=== PATIENT | female | born 1965 | race Two or more races ===

== ENCOUNTER 2025-03-31 11:34 | Inpatient (IN) | payer BC, OTHER ==
[~2025-03-31] VITALS: Ht 152.4 cm; Wt 47.5 kg
[2025-03-31] VITALS (30 sets, daily range): BP systolic 96–137; BP diastolic 35–69; PULSE 33–44; RESP 12–18; TEMP 97.8–98; O2SAT 96–98
--- NOTE | 2025-03-31 12:19 | ED.PDOC ---
History of Present Illness HPI Comments 59-year-old female with no PMHx presents with a chief complaint of dizziness x 1 month with associated bradycardia. Patient states that she went today to get a colonoscopy for the first time and was told that she was bradycardic. Patient was bradycardic upon arrival at 37 BPM. Patient reports that she has been dealing with dizziness for the past month. Chief Complaint: General Weakness Time Seen by MD: 12:13 Primary Care Provider: BHAVIN Alfredo Notes: Nurses Notes, Medications, Allergies Allergies: Coded Allergies: NO KNOWN ALLERGIES (Unverified , 03/31/25) Information Source: Patient Mode of Arrival: Ambulatory Severity: Moderate Timing: Hours Duration: Since onset Prehospital treatment: None Past Medical History PAST MEDICAL HISTORY: Denies Surgical History: COMMUNITY SERVICE DIRECTOR History: Denies all COMMUNITY SERVICE DIRECTOR Hx Family History Family History: Reviewed,noncontributory to illness Social History Smoker: Non-Smoker Alcohol: Denies ETOH Use Drugs: Denies Drug Use Lives In: Home Constitutional: denies: chills, diaphoresis, fatigue, fever, malaise, sweats, weakness, others EENTM: denies: blurred vision, double vision, ear bleeding, ear discharge, ear drainage, ear pain, ear ringing, eye pain, eye redness, hearing loss, mouth pain, mouth swelling, nasal discharge, nose bleeding, nose congestion, nose pain, photophobia, tearing, throat pain, throat swelling, voice changes, others Respiratory: denies: cough, hemoptysis, orthopnea, SOB at rest, shortness of breath, SOB with excertion, stridor, wheezing, others Cardiovascular: denies: chest pain, dizzy spells, diaphoresis, Dyspnea on exertion, edema, irregular heart beat, left arm pain, lightheadedness, palpitations, PND, syncope, others Gastrointestinal: denies: abdomen distended, abdominal pain, blood streaked bowels, constipated, diarrhea, dysphagia, difficulty swallowing, hematemesis, melena, nausea, poor appetite, poor fluid intake, rectal bleeding, rectal pain, vomiting, others Genitourinary: denies: abnormal vagina bleeding, burning, dyspareunia, dysuria, flank pain, frequency, hematuria, incontinence, pain, , vagina discharge, urgency, others Neurological: reports: dizziness; denies: fainting, headache, left sided numbness, left sided weakness, numbness, paresthesia, pre-existing deficit, right sided numbness, right sided weakness, seizure, speech problems, tingling, tremors, weakness, others Musculoskeletal: denies: back pain, gout, joint pain, joint swelling, muscle pain, muscle stiffness, neck pain, others Integumetry: denies: bruises, change in color, change in hair/nails, dryness, laceration, lesions, lumps, rash, wounds, others Allergic/Immunocompromised: denies: Difficulty Healing, Frequent Infections, Hives, Itching, others Hematologic/Lymphatic: denies: anemia, blood clots, easy bleeding, easy bruising, swollen glands, others Endocrine: denies: excessive hunger, excessive sweating, excessive thirst, excessive urination, flushing, intolerance to cold, intolerance to heat, unexplained weight gain, unexplained weight loss, others Psychiatric: denies: anxiety, bipolar disorder, depression, hopeless, panic disorder, schizophrenia, sleepless, suicidal, others All Other Systems: Reviewed and Negative Physical Exam General Appearance: Moderate Distress HEENT: Normal ENT Inspection, Pharynx Normal, TMs Normal Neck: Full Range of Motion, Non-Tender, Normal, Normal Inspection Respiratory: Chest Non-Tender, Lungs Clear, No Accessory Muscle Use, No Respiratory Distress, Normal Breath Sounds Cardiovascular: Bradycardia, No Edema, No JVD, No Murmur, No Gallop Breast Exam: Deferred Gastrointestinal: No Organomegaly, Non Tender, No Pulsatile Mass, Normal Bowel Sounds, Soft Genitalia: Deferred Pelvic: Deferred Rectal: Deferred Extremities: No calf tenderness, Normal capillary refill, Normal inspection, Normal range of motion, Non-tender, No pedal edema Musculoskeletal : Apperance: Normal Neurologic: Alert, 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 Was a procedure done?: No EKG EKG : Pulse Rate (adult): 37 Lena: Normal Cardiac Rhythm: ST Block: 2 Hypertrophy: None ST: Normal Differential Dx Considerations may include: Second-degree heart block, bradycardia, generalized weakness, electrolyte imbalance X-Ray, Labs, Meds, VS Vital Signs Date Time Temp Pulse Resp B/P (MAP) Pulse Ox O2 Delivery O2 Flow Rate FiO2 03/31/25 12:27 40 16 96 Room Air* 0 21 03/31/25 12:27 97.7 40 16 147/53 (84) 96 97.7 03/31/25 12:19 37 03/31/25 12:04 97.7 49 14 153/55 (87) 99 97.7 Lab Test 03/31/25 13:21 03/31/25 12:32 03/31/25 12:00 Range/Units Troponin I High Sensitivity Pending 4 </=34 ng/L White Blood Count 7.4 4.4-10.8 10^3/uL Red Blood Count 5.27 H 4.0-5.20 10^6/uL Hemoglobin 13.5 12.2-16.2 g/dL Hematocrit 40.7 36.0-46.0 % Mean Corpuscular Volume 77.3 L 80.0-100.0 fL Mean Corpuscular Hemoglobin 25.5 L 28.0-32.0 pg Mean Corpuscular Hemoglobin Concent 33.0 32.0-36.0 g/dL Red Cell Distribution Width 13.3 11.8-14.3 % Platelet Count 311 140-450 10^3/uL Mean Platelet Volume 8.1 6.9-10.8 fL Neutrophils (%) (Auto) 71.2 37.0-80.0 % Lymphocytes (%) (Auto) 23.9 10.0-50.0 % Monocytes (%) (Auto) 4.0 0.0-12.0 % Eosinophils (%) (Auto) 0.3 0.0-7.0 % Basophils (%) (Auto) 0.6 0.0-2.0 % Neutrophils # (Auto) 5.3 1.6-8.6 10 ^3/uL Lymphocytes # (Auto) 1.8 0.4-5.4 10 ^3/uL Monocytes # (Auto) 0.3 0-1.3 10 ^3/uL Eosinophils # (Auto) 0 0-0.8 10 ^3/uL Basophils # (Auto) 0 0-0.2 10 ^3/uL Nucleated Red Blood Cells 0.0 % Sodium Level 139 136-145 mmol/L Potassium Level 4.2 3.5-5.1 mmol/L Chloride Level 106 98-107 mmol/L Carbon Dioxide Level 25 20-31 mmol/L Anion Gap 8 5-15 Blood Urea Nitrogen 14 9-23 mg/dL Creatinine 0.78 0.550-1.02 mg/dL Glomerular Filtration Rate Calc 89 >90 mL/min BUN/Creatinine Ratio 17.9 10.0-20.0 Serum Glucose 120 H 74-106 mg/dL Hemoglobin A1c 5.9 H <5.7 % A1C Calcium Level 9.1 8.7-10.4 mg/dL Triglycerides Level Pending Cholesterol Level Pending LDL Cholesterol Pending HDL Cholesterol Pending Thyroid Stimulating Hormone (TSH) 1.18 0.55-4.78 uIU/mL Free Thyroxine (T4) Calculated Pending Urine Color Colorless Yellow Urine Clarity Clear Clear Urine pH 5.0 5.0-9.0 Urine Specific [place] 1.007 1.001-1.035 Urine Protein Negative Negative Urine Ketones Negative Negative Urine Blood Negative Negative /uL Urine Nitrite Negative Negative Urine Bilirubin Negative Negative Urine Urobilinogen Normal Negative mg/dL Urine Leukocyte Esterase Negative Negative /uL Urine RBC <1 0 - 4 /hpf Urine Microscopic WBC < 1 0-5 /HPF Urine Squamous Epithelial Cells Few <5 /hpf Urine Bacteria None seen None Seen /hpf Urine Glucose Normal Normal mg/dL Urine Opiates Screen Pending Urine Fentanyl Screen Pending Urine Barbiturates Screen Pending Urine Phencyclidine Screen Pending Urine Amphetamines Screen Pending Urine Benzodiazepines Screen Pending Urine Cocaine Screen Pending Urine Cannabinoids Screen Pending Current Medications Medications (Trade) Dose Ordered Sig/Jenn Route Start Time Stop Time Status Last Admin Sodium Chloride 500 ml @ 500 mls/hr Q1H ONCE IV 03/31/25 12:15 03/31/25 13:14 DC 03/31/25 12:25 The patient's family members at bedside The patient had an IV Hep-Lock established and the patient was bolused with 500 cc of normal saline The urine test is negative for any infection The CBC is within normal limits The chemistry panel is within normal limits The 1st troponin level is negative We did send the EKG to the double needle operator as it looks like the patient is having a second-degree block. At this time the patient was not started on any medication The patient is being admitted at this time. The patient understands and agrees with the management. Images Reviewed?: Images reviewed and evaluated by me Time of 1ST Reevaluation: 12:43 Reevaluation 1ST: Unchanged Patient Education/Counseling: Diagnosis, Treatment, Prognosis Family Education/Counseling: Diagnosis, Treatment, Prognosis Departure 1 Departure Time of Disposition: 14:07 Impression: Primary Impression: Second degree heart block Additional Impression: Dizziness Disposition: 09 ADMITTED INPATIENT Admit to: [facility] Condition: Guarded Critical Care Note Critical Care Time?: Yes (45 min-critical care time only) Stability Stability form required: Yes Unstable for transfer: ICU, CCU, PCU, [facility] (Intensive VS monitoring), ED Ph ysician Assesment (Clinical assesment) Heart Score Heart Score: Heart Score Response (Comments) Value History Slightly Suspicious 0 EKG Repolarization Disturb 1 Age 45-64 1 Risk Factors 1 or 2 risk factors 1 Troponin Normal limit 0 Total 3 I personally scribed for RABIA SALGADO MD ([email or web address]) on 03/31/25 at 12:19. Electronically submitted by [place] ([email or web address]). RABIA SALGADO MD Mar 31, 2025 12:19
[2025-03-31 12:23] LABS: Urine Bacteria None Seen /hpf (None Seen)
[2025-03-31] MEDS: SODIUM CHLORIDE 0.9% 500 ML IV ONE (12:25)
[2025-03-31 12:40] LABS: Urine Blood Negative /uL (Negative); Urine Clarity Clear (Clear); Urine Color Colorless (Yellow); Urine Protein, UAD Negative (Negative); Urine Specific Gravity 1.007 (1.001-1.035); Urine Squamous Epithelial Cell FEW /hpf (<5); Urine Urobilinogen Normal (Negative); Urine WBC < 1 /HPF (0-5)
[2025-03-31 12:43] LABS: Basophils # (auto) 0 10 ^3/uL (0-0.2); Basophils % (auto) 0.6 % (0.0-2.0); Eosinophils # (auto) 0 10 ^3/uL (0-0.8); Eosinophils % (auto) 0.3 % (0.0-7.0); Hematocrit 40.7 % (36.0-46.0); Hemoglobin 13.5 g/dL (12.2-16.2); Lymphocytes # (auto) 1.8 10 ^3/uL (0.4-5.4); Lymphocytes % (auto) 23.9 % (10.0-50.0); Mean Corpuscular Hemoglobin 25.5 pg (28.0-32.0); Mean Corpuscular Volume 77.3 fL (80.0-100.0); Monocytes # (auto) 0.3 10 ^3/uL (0-1.3); Neutrophils # (auto) 5.3 10 ^3/uL (1.6-8.6); Neutrophils % (auto) 71.2 % (37.0-80.0); Platelet Count (auto) 311 10^3/uL (140-450); Red Blood Cells 5.27 10^6/uL (4.0-5.20); Red Cell Distribution Width 13.3 % (11.8-14.3); White Blood Cell 7.4 10^3/uL (4.4-10.8)
--- NOTE | 2025-03-31 12:47 | DVH ---
INDICATION: weakness TECHNIQUE: Frontal view of the chest. COMPARISON: None FINDINGS: . The heart and mediastinal contours are grossly unremarkable. There is no evidence of pleural disea se. The lungs are clear. The bony structures of the chest are intact without fracture. IMPRESSION: 1. No evidence of acute disease.
[2025-03-31 12:51] LABS: Chloride 106 mmol/L (98-107); Potassium 4.2 mmol/L (3.5-5.1); Sodium 139 mmol/L (136-145)
[2025-03-31 12:52] LABS: Anion Gap 8 (5-15); Calcium 9.1 mg/dL (8.7-10.4); Carbon Dioxide 25 mmol/L (20-31)
[2025-03-31 12:57] LABS: BUN/Creatinine Ratio 17.9 (10.0-20.0); Blood Urea Nitrogen 14 mg/dL (9-23)
[2025-03-31 12:58] LABS: Glucose 120 mg/dL (74-106)
[2025-03-31] MEDS ORDERED: ONDANSETRON HCL 4 MG/2 ML VIAL IV PRN (13:15)
--- NOTE | 2025-03-31 13:32 | DVHHP2 ---
History of Present Illness Reason for Visit: SOB History of Present Illness Ibis Quiles is a 59-year-old female with past medical history of who presents to the ED with dizziness, generalized weakness, shortness of breath x1 month. Patient reports that she was supposed to get a colonoscopy today as a routine checkup when they noticed that her heart rate was low. Patient also reports traveling to [place] recently during and was develops fever which he has took Tylenol along with a cough with no productive phlegm. She states that she took some cinnamon to help with it. Her Juaquin is at the bedside. She states that she last saw primary doctor 6 months ago. Patient denies any chest pain, chills, recent trauma or injury, recent ingestion of spoiled food, abdominal pain, nausea, vomiting, or diarrhea. Review of Systems Constitutional: Yes: Weakness, Other (Dizziness) Respiratory: Shortness of breath Allergies: Coded Allergies: NO KNOWN ALLERGIES (Unverified , 03/31/25) Medications Current Medications Medications Dose Ordered Sig/Jenn Route Start Time Stop Time Status Last Admin Dose Admin Acetaminophen 650 mg Q6HP PRN PO 03/31/25 13:15 UNV Ondansetron HCl 4 mg Q4HP PRN IV 03/31/25 13:15 UNV Exam Vital Signs Vital Signs Date Time Temp Pulse Resp B/P (MAP) Pulse Ox O2 Delivery O2 Flow Rate FiO2 03/31/25 12:27 40 16 96 Room Air* 0 21 03/31/25 12:27 97.7 147/53 (84) 97.7 General Appearance: Alert, Oriented X3, Cooperative, No acute distress HEENT: Atraumatic, PERRLA, EOMI, Mucous membr. moist/pink Respiratory: Clear to auscultation, Normal air movement Cardiovascular: Normal S1, Normal S2 Abdominal: Normal bowel sounds, Soft, No tenderness, No hepatospenomegaly, No masses Extremities: No clubbing, No cyanosis, No edema Skin: No significant lesion Neuro: Normal speech, Normal tone, Sensation intact Psych/Mental Status: Mental status NL, Mood NL Labs/Xrays Labs Test 03/31/25 12:32 03/31/25 12:00 Range/Units White Blood Count 7.4 4.4-10.8 10^3/uL Red Blood Count 5.27 H 4.0-5.20 10^6/uL Hemoglobin 13.5 12.2-16.2 g/dL Hematocrit 40.7 36.0-46.0 % Mean Corpuscular Volume 77.3 L 80.0-100.0 fL Mean Corpuscular Hemoglobin 25.5 L 28.0-32.0 pg Mean Corpuscular Hemoglobin Concent 33.0 32.0-36.0 g/dL Red Cell Distribution Width 13.3 11.8-14.3 % Platelet Count 311 140-450 10^3/uL Mean Platelet Volume 8.1 6.9-10.8 fL Neutrophils (%) (Auto) 71.2 37.0-80.0 % Lymphocytes (%) (Auto) 23.9 10.0-50.0 % Monocytes (%) (Auto) 4.0 0.0-12.0 % Eosinophils (%) (Auto) 0.3 0.0-7.0 % Basophils (%) (Auto) 0.6 0.0-2.0 % Neutrophils # (Auto) 5.3 1.6-8.6 10 ^3/uL Lymphocytes # (Auto) 1.8 0.4-5.4 10 ^3/uL Monocytes # (Auto) 0.3 0-1.3 10 ^3/uL Eosinophils # (Auto) 0 0-0.8 10 ^3/uL Basophils # (Auto) 0 0-0.2 10 ^3/uL Nucleated Red Blood Cells 0.0 % Sodium Level 139 136-145 mmol/L Potassium Level 4.2 3.5-5.1 mmol/L Chloride Level 106 98-107 mmol/L Carbon Dioxide Level 25 20-31 mmol/L Anion Gap 8 5-15 Blood Urea Nitrogen 14 9-23 mg/dL Creatinine 0.78 0.550-1.02 mg/dL Glomerular Filtration Rate Calc 89 >90 mL/min BUN/Creatinine Ratio 17.9 10.0-20.0 Serum Glucose 120 H 74-106 mg/dL Calcium Level 9.1 8.7-10.4 mg/dL Troponin I High Sensitivity 4 </=34 ng/L Urine Color Colorless Yellow Urine Clarity Clear Clear Urine pH 5.0 5.0-9.0 Urine Specific [place] 1.007 1.001-1.035 Urine Protein Negative Negative Urine Ketones Negative Negative Urine Blood Negative Negative /uL Urine Nitrite Negative Negative Urine Bilirubin Negative Negative Urine Urobilinogen Normal Negative mg/dL Urine Leukocyte Esterase Negative Negative /uL Urine RBC <1 0 - 4 /hpf Urine Microscopic WBC < 1 0-5 /HPF Urine Squamous Epithelial Cells Few <5 /hpf Urine Bacteria None seen None Seen /hpf Urine Glucose Normal Normal mg/dL INDICATION: weakness TECHNIQUE: Frontal view of the chest. COMPARISON: None FINDINGS: . The heart and mediastinal contours are grossly unremarkable. There is no evidence of pleural disease. The lungs are clear. The bony structures of the chest are intact without fracture. IMPRESSION: 1. No evidence of acute disease. Assessment/Plan Assessment/Plan Assessment Sinus bradycardia with dizziness and generalized weakness History of Plan Admit to ICU NS at 500 cc given in ED EKG Troponins noted UA Chest x-ray noted Echo ordered Hemoglobin A1c UDS TSH lipid panel NPO for now Patient reports that she does not take any medications at home DVT prophylaxis-not indicated patient ambulates PUD prophylaxis not indicated no history of GERD or GI bleed Discussed plan of care with patient, patient's and nurse Cardiology consult for possible pacemaker Plan discussed with: Patient, Spouse My Orders Orders - ARLENE LAUGHLIN PRODUCTION COUNTER Procedure Category Date Status Time Admit ADMIT 03/31/25 Transmitted 13:07 Code Status CODE 03/31/25 Transmitted 13:07 Vital Signs KRYSTAL 03/31/25 In Process 13:07 Single Resource Boss KRYSTAL 03/31/25 In Process 13:07 Acetaminophen Tablet PHA 03/31/25 Logged (Tylenol Tablet) 13:15 Complete Blood Count LAB 04/01/25 Verified 04:00 Basic Metabolic Panel LAB 04/01/25 Verified 04:00 Magnesium LAB 04/01/25 Verified 04:00 Lipid Panel LAB 04/01/25 Verified 04:00 Echo 2d Mode Cardiac US 03/31/25 Logged DOP 13:07 Ondansetron Hcl PHA 03/31/25 Logged (Zofran) 13:15 Electrocardigram EKG 04/01/25 Logged 04:00 Troponin-I Hs LAB 03/31/25 Logged 13:07 Cardiac KRYSTAL 03/31/25 In Process Rehabilitation - Outpa Stat Ekg For Chest KRYSTAL 03/31/25 In Process Pain 13:07 Notify Of Changes KRYSTAL 03/31/25 In Process From Base 13:07 B2B Sales Manager For KRYSTAL 03/31/25 In Process 24 Hours 13:07 Emergency Dysrhythmia KRYSTAL 03/31/25 In Process Protocol 13:07 Rhythm Strips Once KRYSTAL 03/31/25 In Process Every Shift 13:07 Oxygen By Nasal RT 03/31/25 Transmitted Cannula 13:07 Drug Screen LAB 03/31/25 Transmitted 13:30 Lipid Panel LAB 03/31/25 Transmitted 13:30 Hemoglobin A1c LAB 03/31/25 Transmitted 13:30 Thyroid Stimulating LAB 03/31/25 Transmitted Hormone 13:30 Date of Service: Mar 31, 2025 Billing Provider: ARLENE LAUGHLIN Common Visit Codes: [id number] INP/OBS CARE (HIGH) ARLENE LAUGHLIN Mar 31, 2025 13:32
--- NOTE | 2025-03-31 14:42 | DVHINCON2 ---
Date Seen: Mar 31, 2025 Referring Physician DEVIN Charles Reason for Consultation Bradycardia History of Present Illness This is a 59-year-old female patient who presents to the emergency room with chief complaint of dizziness and fatigue for one month. The patient is primarily [place] speaking. Her at bedside is able to translate. Per her , they went to her colonoscopy appointment and during check in, she was found to be bradycardic. She was referred to the emergency room for further evaluation. Initial twelve lead electrocardiogram reveals sinus bradycardia with 2nd degree type 2 atrioventricular block. At the time of assessment, patient's heart rate fluctuating between 38-42 beats per minute, lace pinner reveals patient is still having episodic second-degree type 2 AV block. The patient denies any previous medical history. The patient denies taking any prescribed medications or [id number] medications. Past Medical History Past medical history reviewed. No other significant than mentioned above. Past Surgical History Family History Family history reviewed. Social History Denies the use of tobacco, alcohol or illicit drugs. Allergies: Coded Allergies: NO KNOWN ALLERGIES (Unverified , 03/31/25) Home Meds Denies taking any prescribed medications Current Medications Current Medications Medications (Trade) Dose Ordered Sig/Jenn Route PRN Reason Start Time Stop Time Status Last Admin Acetaminophen (Tylenol Tablet) 650 mg Q6HP PRN PO MILD PAIN (1-3 PAIN SCALE) 03/31/25 13:15 UNV Ondansetron HCl (Zofran) 4 mg Q4HP PRN IV NAUSEA / VOMITING 03/31/25 13:15 UNV Review of Systems Constitutional: No symptom reported Ears, Nose, & Throat: No symptom reported Eyes: No symptom reported Neurological: Dizziness Pulmonary/Respiratory: No symptoms reported Cardiovascular: No symptom reported Gastrointestinal: No symptom reported Genitourinary: No symptom reported Musculoskeletal: No symptom reported Skin: No symptom reported Psychiatric: No symptom reported Endocrine: No symptom reported Hematologic/Lymphatic: No symptom reported Vital Signs Vital Signs Date Time Temp Pulse Resp B/P (MAP) Pulse Ox O2 Delivery O2 Flow Rate FiO2 03/31/25 12:27 40 16 96 Room Air* 0 21 03/31/25 12:27 97.7 147/53 (84) 97.7 Physical Exam General Appearance: Cooperative. Well-developed. Well-nourished. No acute distre ss. Pulmonary/Respiratory: Clear, bilateral breaths sounds. Cardiovascular/Chest: Regular rate and rhythm. Peripheral Pulses: 2+ Radial (R). 2+ Radial (L). 2+ Pedal (R). 2+ Pedal (L) Abdominal Exam: Normal bowel sounds. Ankle Exam: Negative ankle edema Lower extremities: Negative lower extremity edema Neuro/Mental Status: A/OX4, coherent. Thoughts/Psych: Normal thought pattern. Appropriate mood and affect. Good judgment and insight. Appearance: No acute distress. Skin Exam: Normal inspection. Normal color. Warm and dry. Labs/Diagnostic Data Labs Test 03/31/25 12:32 03/31/25 12:00 Range/Units White Blood Count 7.4 4.4-10.8 10^3/uL Red Blood Count 5.27 H 4.0-5.20 10^6/uL Hemoglobin 13.5 12.2-16.2 g/dL Hematocrit 40.7 36.0-46.0 % Mean Corpuscular Volume 77.3 L 80.0-100.0 fL Mean Corpuscular Hemoglobin 25.5 L 28.0-32.0 pg Mean Corpuscular Hemoglobin Concent 33.0 32.0-36.0 g/dL Red Cell Distribution Width 13.3 11.8-14.3 % Platelet Count 311 140-450 10^3/uL Mean Platelet Volume 8.1 6.9-10.8 fL Neutrophils (%) (Auto) 71.2 37.0-80.0 % Lymphocytes (%) (Auto) 23.9 10.0-50.0 % Monocytes (%) (Auto) 4.0 0.0-12.0 % Eosinophils (%) (Auto) 0.3 0.0-7.0 % Basophils (%) (Auto) 0.6 0.0-2.0 % Neutrophils # (Auto) 5.3 1.6-8.6 10 ^3/uL Lymphocytes # (Auto) 1.8 0.4-5.4 10 ^3/uL Monocytes # (Auto) 0.3 0-1.3 10 ^3/uL Eosinophils # (Auto) 0 0-0.8 10 ^3/uL Basophils # (Auto) 0 0-0.2 10 ^3/uL Nucleated Red Blood Cells 0.0 % Sodium Level 139 136-145 mmol/L Potassium Level 4.2 3.5-5.1 mmol/L Chloride Level 106 98-107 mmol/L Carbon Dioxide Level 25 20-31 mmol/L Anion Gap 8 5-15 Blood Urea Nitrogen 14 9-23 mg/dL Creatinine 0.78 0.550-1.02 mg/dL Glomerular Filtration Rate Calc 89 >90 mL/min BUN/Creatinine Ratio 17.9 10.0-20.0 Serum Glucose 120 H 74-106 mg/dL Calcium Level 9.1 8.7-10.4 mg/dL Troponin I High Sensitivity 4 </=34 ng/L Urine Color Colorless Yellow Urine Clarity Clear Clear Urine pH 5.0 5.0-9.0 Urine Specific [place] 1.007 1.001-1.035 Urine Protein Negative Negative Urine Ketones Negative Negative Urine Blood Negative Negative /uL Urine Nitrite Negative Negative Urine Bilirubin Negative Negative Urine Urobilinogen Normal Negative mg/dL Urine Leukocyte Esterase Negative Negative /uL Urine RBC <1 0 - 4 /hpf Urine Microscopic WBC < 1 0-5 /HPF Urine Squamous Epithelial Cells Few <5 /hpf Urine Bacteria None seen None Seen /hpf Urine Glucose Normal Normal mg/dL Assessment Sinus bradycardia with second-degree type II atrioventricular block Rule out structural heart disease Dyslipidemia, newly diagnosed History of Plan/Recommendation We will continue with following plan/recommendations (Dr. Mckee): Case discussed with . We will proceed with obtaining a transthoracic echocardiogram to evaluate cardiac function. At the time of assessment, the patient is asymptomatic and denies any cardiac symptoms. Blood pressures stable at time of assessment. Given that the patient has no reversible causes and presents with intermittent 2nd degree type II atrioventricular block, the patient will need a permanent pacemaker. Procedure discussed with the patient and her at bedside in full detail. Plan for permanent pacemaker insertion on 04/01/2025 at soonest availability. Recommend to initiate transcutaneous pacing with symptomatic bradycardia and call procurement professional immediately. Initiate Isuprel (isoproterenol) for heart rate less than 30 beats per minute. Keep patient ICU status overnight. Avoid any AV tyrel blocking agents. Thank you for allowing us to care for this patient. Please call with any questions or concerns. Critical care time spent: 44 minutes This medical document was created using an electronic medical record system with voice recognition software and computerized dictation system. Although this document has been carefully reviewed, there might still be some phonetic and typographical errors. Occasional wrong-word or ``sound-alike substitutions may have occurred due to the inherent limitations of voice recognition software. These areas are purely typographical due to imperfections of the software programs and do not reflect any compromise in the patient's medical care. Please read the chart carefully and recognize, using context, where these substitutions have occurred. Plan discussed with: Patient NYHA Physical activity limitations: NA Date of Service: Mar 31, 2025 Billing Provider: MACKENZIE COLLIER Cardiology Common Codes: [id number] INP/OBS CARE (High) Cardiology Consultation Codes: [id number] CONSULT <45MIN MCAKENZIE COLLIER Mar 31, 2025 14:42
[2025-03-31 14:54] LABS: Amphetamine Screen, Urine Neg (NEGATIVE); Barbiturate Scree,Urine Neg (NEGATIVE); Benzodiazephine Screen, Urine Neg (NEGATIVE); Cannabinoid Screen, Urine Neg (NEGATIVE); Cocaine Screen, Urine Neg (NEGATIVE); Opiate Scree,Urine Neg (NEGATIVE); Phencyclidine Screen, Urine Neg (NEGATIVE)
[2025-03-31 15:41] LABS: Triglycerides 83 mg/dL (< 150)
[2025-03-31 15:43] LABS: HDL Cholesterol 50 mg/dL (40-59)
[2025-03-31 15:45] LABS: Cholesterol 222 mg/dL (< 200); LDL Cholesterol 169 mg/dL (< 100)
[2025-03-31] MEDS: ATORVASTATIN 20 MG TAB PO SCH (19:43)
[2025-03-31] MEDS ORDERED: ISOPROTERENOL HCL INJECTION 1 MG in D5W 5% 250 ML IV SCH (20:00)
[2025-04-01] VITALS (49 sets, daily range): BP systolic 83–131; BP diastolic 37–84; PULSE 32–83; RESP 12–20; TEMP 97–99.5; O2SAT 96–100
[2025-04-01] MEDS: DOPamine 1600MCG/ML D5W 250 ML IV PRN (03:24)
[2025-04-01 04:17] LABS: Basophils # (auto) 0 10 ^3/uL (0-0.2); Basophils % (auto) 0.7 % (0.0-2.0); Eosinophils # (auto) 0.1 10 ^3/uL (0-0.8); Eosinophils % (auto) 0.8 % (0.0-7.0); Hematocrit 42.3 % (36.0-46.0); Hemoglobin 14.1 g/dL (12.2-16.2); Lymphocytes # (auto) 1.9 10 ^3/uL (0.4-5.4); Lymphocytes % (auto) 28.7 % (10.0-50.0); Mean Corpuscular Hemoglobin 25.8 pg (28.0-32.0); Mean Corpuscular Hgb Conc. 33.4 g/dL (32.0-36.0); Mean Corpuscular Volume 77.3 fL (80.0-100.0); Monocytes # (auto) 0.3 10 ^3/uL (0-1.3); Monocytes % (auto) 5.2 % (0.0-12.0); Neutrophils # (auto) 4.2 10 ^3/uL (1.6-8.6); Neutrophils % (auto) 64.6 % (37.0-80.0); Nucleated Red Blood Cells % 0.1 %; Platelet Count (auto) 295 10^3/uL (140-450); Red Blood Cells 5.47 10^6/uL (4.0-5.20); Red Cell Distribution Width 13.3 % (11.8-14.3); White Blood Cell 6.5 10^3/uL (4.4-10.8)
[2025-04-01 04:23] LABS: Anion Gap 12 (5-15); Carbon Dioxide 22 mmol/L (20-31); Chloride 108 mmol/L (98-107); Potassium 3.7 mmol/L (3.5-5.1); Sodium 142 mmol/L (136-145)
[2025-04-01 04:24] LABS: Calcium 9.2 mg/dL (8.7-10.4)
[2025-04-01 04:27] LABS: INR 1.06 (0.9-1.15); Partial Thromboplastin Time 31.8 SEC (24.5-34.5); Prothrombin Time 11.2 sec (9.3-11.8)
[2025-04-01 04:29] LABS: Blood Urea Nitrogen 13 mg/dL (9-23); Glucose 98 mg/dL (74-106)
[2025-04-01 04:44] LABS: Triglycerides 90 mg/dL (< 150)
[2025-04-01 04:46] LABS: HDL Cholesterol 51 mg/dL (40-59)
[2025-04-01 04:48] LABS: Cholesterol 230 mg/dL (< 200); LDL Cholesterol 174 mg/dL (< 100)
[2025-04-01] MEDS: VANCOMYCIN 1GM/200ML PM 200 ML IV ONE (12:36)
[2025-04-01] MEDS: VANCOMYCIN HCL 1000 MG VL ONE (12:36)
[2025-04-01] MEDS: fentaNYL CITRATE 100 MCG/2 ML VL ONE (12:36)
[2025-04-01] MEDS: LIDOCAINE 2%HCL (LOCAL ANESTH.) INJ 20ML MDV ONE (12:36)
[2025-04-01] MEDS: MIDAZOLAM HCL 2MG/2ML 2ml VIAL (1mg/ml) ONE (12:36)
[2025-04-01] MEDS: IODIXANOL 320MG/ML 100ML BTL IV ONE (12:52)
--- NOTE | 2025-04-01 14:25 | DVHOP2 ---
Operative Report - 2 Report Details Date: 04/01/25 Preop Diagnosis: Second-degree AV block type 2 Postop Diagnosis: Second-degree AV block type 2 Surgeon: Brittny Mckee MD Anesthesiologist: Conscious sedation Anesthesia: Mac, Local Implant: Dual-chamber permanent pacemaker Consent: The patient was informed of the risks and benefits of the procedure. These include but are not limited to complications of anesthesia, postoperative infection, incomplete relief of symptoms, recurrence of symptoms, damage to blood vessels, nerves and tendons, deep venous thrombosis, pulmonary embolism and possible need for repeat surgery in the future. Complications: No complications Estimated Blood Loss: 5 cc Findings: Second-degree AV block type 2 Indications for Surgery: Symptomatic bradycardia. Second-degree AV block type 2 Name of Procedure Performed Permanent pacemaker implantation. Procedure Details Procedure Details: Prior local anesthesia with 2% lidocaine to the left pectoral area and full informed consent obtained the patient was prepped and draped in usual fashion followed by an incision made over the left pectoral area after venogram was performed and under fluoroscopic guidance we placed a cook needle into the subclavian vein and placed AJ curved guidewire. Peel-away sheaths were used to place active fixation electrodes into the right ventricle and right atrium after adequate capture and sensitivity thresholds were obtained Patient tolerated the procedure well there were no complications The atrial lead placed is a solia S 45 serial number [id number] by [employer]. P wave was 2.9 volts at 0.9 volts and 0.4 milliseconds, 880 Ohms of impedance. The ventricular lead is a solia S 53 serial number [id number] by [employer], R- wave was 8.7 at 0.6 volts 0.4 milliseconds and 665 Ohms of impedance The implanted device is a Amvia Edge DRT serial no. [id number] by [employer] The settings are as follows: DDD at a lower rate of 60 and an upper rate of 130. Right atrial pulse amplitude at 4 volts at 0.4 milliseconds at 0.5 mV of sensitivity bipolar configuration in both pacing and sensing. The right ventricular lead is set at 4 volts at 0.4 milliseconds of pulse width. A sensitivity of 2 mV and bipolar configuration in both sensing and pacing. A chest x-ray was obtained to evaluate lead placement. 0 Ethibond was used to tie the leads. 3-0 Vicryl was used to close the pocket and 4-0 Monocryl was used to close the skin. Patient tolerated the procedure well there were no complications Impression: Successful permanent pacemaker implantation for second-degree AV block and symptomatic bradycardia Recommendations: Continue with risk factor modification. Chest x-ray and EKG ordered. Condition Good Disposition Still a Patient Date of Service: Apr 01, 2025 Billing Provider: BRITTNY MCKEE Sr., MD Cardiology Common Codes: PROCEDURE ONLY Card. Pacer Implants/Gen [id number]/REPLACE DUAL LEAD PACER BRITTNY MCKEE Sr., MD Apr 01, 2025 14:25
--- NOTE | 2025-04-01 14:51 | DVH ---
CHEST RADIOGRAPH Indication: S/P PACEMAKER Technique: Single frontal view of the chest was obtained COMPARISON: XY CHEST PORTABLE on DOS: 03/31/25 FINDINGS: Lines and Tubes: Left chest wall pacemaker Lungs: Clear Pleura: No effusion. No pneumothorax. Cardiomediastinal contours: Unremarkable Bones: Unremarkable IMPRESSION: No acute disease.
[2025-04-01] MEDS: ACETAMINOPHEN 325 MG TAB PO PRN (18:13)
--- NOTE | 2025-04-01 19:59 | DVHPN2 ---
Subjective Still having symptoms Reviewed: H&P, Labs Changes from previous H/P or p: No Changes Respiratory: Shortness of breath Objective Vitals Vital Signs Date Time Temp Pulse Resp B/P (MAP) Pulse Ox O2 Delivery O2 Flow Rate FiO2 04/01/25 16:30 97.1 70 18 125/71 (89) 98 97.1 04/01/25 12:00 Room Air* 0 21 Intake/Output Intake and Output 04/01/25 07:00 Intake Total 536.6 ml Balance 536.6 ml IV Total 536.6 ml # Voids 2 General Appearance: Alert, Oriented X3 HEENT: Atraumatic Lungs: Clear to auscultation Cardiovascular: Regular rate Abdomen: Normal bowel sounds, Soft Medications Current Medications Medications Dose Ordered Sig/Jenn Route Start Time Stop Time Status Last Admin Dose Admin Acetaminophen 650 mg Q6HP PRN PO 03/31/25 13:15 04/01/25 18:13 650 MG Ondansetron HCl 4 mg Q4HP PRN IV 03/31/25 13:15 Atorvastatin Calcium 40 mg HS PO 03/31/25 22:00 Laboratory Results Laboratory Tests 04/01/25 03:55 Chemistry Test 04/01/25 03:55 Calcium Level 9.2 mg/dL (8.7-10.4) Magnesium Level 2.0 mg/dL (1.6-2.6) Coagulation Test 04/01/25 03:55 Prothrombin Time 11.2 sec (9.3-11.8) Prothrombin Time INR 1.06 (0.9-1.15) Activated Partial Thromboplast Time 31.8 SEC (24.5-34.5) Lipid panel Test 04/01/25 03:55 Cholesterol Level 230 mg/dL (< 200) H HDL Cholesterol 51 mg/dL (40-59) Triglycerides Level 90 mg/dL (< 150) Urinalysis Test 03/31/25 12:00 Urine Color Colorless (Yellow) Urine Clarity Clear (Clear) Urine pH 5.0 (5.0-9.0) Urine Specific [place] 1.007 (1.001-1.035) Urine Protein Negative (Negative) Urine Ketones Negative (Negative) Urine Blood Negative /uL (Negative) Urine Nitrite Negative (Negative) Urine Bilirubin Negative (Negative) Urine Urobilinogen Normal mg/dL (Negative) Urine Leukocyte Esterase Negative /uL (Negative) Urine RBC <1 /hpf (0 - 4) Urine Microscopic WBC < 1 /HPF (0-5) Urine Squamous Epithelial Cells Few /hpf (<5) Urine Bacteria None seen /hpf (None Seen) Urine Glucose Normal mg/dL (Normal) Assessment/Plan Assessment/Plan Sinus bradycardia with dizziness and generalized weakness History of Per cardiology will need pacemaker Plan discussed with: Patient Date of Service: Apr 01, 2025 Billing Provider: TIM BRIDGES MD Common Visit Codes: [id number] INP/OBS CARE(HIGH) TIM BRIDGES MD Apr 01, 2025 19:59
[2025-04-02] VITALS (7 sets, daily range): BP systolic 100–115; BP diastolic 53–64; PULSE 64–85; RESP 16–20; TEMP 97.5–98.3; O2SAT 97–100
--- NOTE | 2025-04-02 10:31 | DVH ---
CHEST RADIOGRAPH Indication: CXR FOR PACEMAKER/ICD LEAD PLACEMENT Technique: Single frontal view of the chest was obtained COMPARISON: XY CHEST PORTABLE on DOS: 04/01/25, XY CHEST PORTABLE on DOS: 03/31/25 FINDINGS: Lines and Tubes: Left chest wall pacemaker Lungs: Clear Pleura: No effusion. No pneumothorax. Cardiomediastinal contours: Unremarkable Bones: Unremarkable IMPRESSION: No acute disease.
--- NOTE | 2025-04-02 12:43 | DVHPN2 ---
Consult Progress Note Subjective Review of Systems: MSK:Abnormal (Left incision soreness) Objective vital signs Vital Sign Date Time Temp Pulse Resp B/P (MAP) Pulse Ox O2 Delivery O2 Flow Rate FiO2 04/02/25 11:49 97.5 85 16 115/59 (77) 99 97.5 04/02/25 08:00 Room Air* 0 21 Total Intake and Output 04/01/25 04/01/25 04/02/25 15:00 23:00 07:00 Intake Total 0 ml 240 ml Balance 0 ml 240 ml medications Current Medications Medications Dose Ordered Sig/Jenn Route Start Time Stop Time Status Last Admin Dose Admin Acetaminophen 650 mg Q6HP PRN PO 03/31/25 13:15 04/01/25 18:13 650 MG Ondansetron HCl 4 mg Q4HP PRN IV 03/31/25 13:15 Atorvastatin Calcium 40 mg HS PO 03/31/25 22:00 04/01/25 21:07 40 MG Examination: CVS:Normal (Telemetry consistent with sinus with V paced rhythm at 72 beats per minute.) laboratory and microbiology Laboratory Tests 04/01/25 03:55 Test 04/01/25 03:55 Range/Units Serum Glucose 98 74-106 mg/dL Problem List/Assessment/Plan Problem List/Assessment/Plan Assessment Sinus bradycardia with second-degree type II atrioventricular block Rule out structural heart disease Dyslipidemia, newly diagnosed History of S/p dual-chamber ppm implantation Plan/Recommendation We will continue with following plan/recommendations (Dr. Mckee): Case discussed with . At the time of assessment, the patient is asymptomatic and denies any cardiac symptoms. Blood pressures stable at time of assessment. Given that the patient has no reversible causes and presents with intermittent 2nd degree type II atrioventricular block, underwent placement of permanent pacemaker. Interrogation this morning showing normal function device. Normal CXR. Patient is stable from Cardiology standpoint in setting of unremarkable echo. Follow up instructions have been given to patient at bedside. Plan of care discussed all questions answered. This medical document was created using an electronic medical record system with voice recognition software and computerized dictation system. Although this document has been carefully reviewed, there might still be some phonetic and typographical errors. Occasional wrong-word or ``sound-alike substitutions may have occurred due to the inherent limitations of voice recognition software. These areas are purely typographical due to imperfections of the software programs and do not reflect any compromise in the patient's medical care. Please read the chart carefully and recognize, using context, where these substitutions have occurred. Thank you for allowing me to participate in the management of this patient. The treatment plan was discussed with and agreed upon by patient/family including requesting consultants and ordering of imaging/procedures. Plan discussed with: Patient Date of Service: Apr 02, 2025 Billing Provider: REGAN MCLEAN Common Visit Codes: [id number] INP/OBS CARE(HIGH) REGAN MCLEAN Apr 02, 2025 12:43
[2025-04-02] MEDS ORDERED: ATOR20TA50 PO (15:02)
--- NOTE | 2025-04-02 15:25 | DVHSR ---
APPROVED REPORT EXAM: Two-dimensional and M-mode echocardiogram with Doppler and color Doppler. Blood Pressure: 147/53 mmHg INDICATION EVALUATE CARDIAC FUNCTION RISK FACTORS Height: 5'0, Weight: 215 DIMENSIONS LVDd3.1 (3.8-5.7cm)LA (2D)4.2 (1.9-4.0cm)Aortic Root2.9 (2.0-3.7cm) LVDs2.0 (2.5-4.0cm)LA (MM) (1.9-4.0cm)Aortic Cusp Exc1.7 (1.5-2.0cm) EF (%) 65.0 (55-70%)Rt. Atrium3.1 (1.9-4.0cm)Asc. Aorta cm IVSd0.7 (0.7-1.1cm)RV (D)3.8 (1.8-2.4cm) PWd1.0 (0.7-1.1cm) Mitral Valve MitralMitral Stenosis E wave1.08m/sMV Mean GR.mmHg A wave0.87m/sMV Peak GR.83mmHg E/A ratio1.22D MVAcm2 DECEL [id number] 1/2 [place] Aortic Valve Aortic ValveAortic Stenosis V11.65m/Temitope Mean GR.6mmHg V21.62m/Temitope Peak GR.10mmHg LVOT Diameter2.0 (1.8-2.4cm)Doppler AVA3.20cm2 Pulmonic Valve V21.15m/s Tricuspid Valve TR Velocity2.27m/s [id number] Conclusion Sinus rhythm. Left atrial enlargement. Aortic root enlargement. Mild aortic sclerosis. Valves appear to be structurally normal. EF of 55% with normal RV function. Dopplers unremarkable. No pericardial effusion masses or vegetations.
--- NOTE | 2025-04-03 09:36 | ECG ---
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
--- NOTE | 2025-04-03 09:47 | ECG ---
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
--- NOTE | 2025-04-04 13:06 | ECG ---
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
--- NOTE | 2025-04-05 07:27 | ECG ---
[facility] Test Date: 2025-04-01 Test Time: 14:25:24 Pat Name: WILIAN CANTOR Department: Room: [address] [place] [address] 1 Gender: F Transmission Inspector: VALENTIN : 1965 Requested By: BRITTNY VIEIRA Order Number: [id number] Reading MD: Measurements Intervals [place] Rate: 84 P: 19 MT: 150 QRS: -76 QRSD: 146 T: 87 QT: 454 QTc: 536 Interpretive Statements Poor data quality, interpretation may be adversely affected Electronic ventricular pacemaker Please click the below link to view image of tracing.
== END 2025-04-02 16:23 | disposition home or self-care (01) | DRG 244 ==
LOC: ER 11:46 → OVERFLOW 13:42 → TELE-EAST 04-01 15:49
PROVIDERS: ADMIT Hospitalist; ATTEND Hospitalist
PROC: 0JH606Z Insertion of Pacemaker, Dual Chamber into Chest Subcutaneous Tissue and Fascia, Open Approach (ICD-10-PCS; principal; 2025-04-01)
PROC: 02H63JZ Insertion of Pacemaker Lead into Right Atrium, Percutaneous Approach (ICD-10-PCS; 2025-04-01)
PROC: 02HK3JZ Insertion of Pacemaker Lead into Right Ventricle, Percutaneous Approach (ICD-10-PCS; 2025-04-01)
DX: I44.1 Atrioventricular block, second degree (principal); E78.5 Hyperlipidemia, unspecified
CPT/HCPCS: 33208; 36415; 71045; 80048; 80061; 80307; 81001; 83036; 83735; 84439; 84443; 84484; 85025; 85610; 85730; 86850; 86900; 86901; 87081; 93005; 93306; 99152; 99291; G0378; J2250; J7060; Q9967

== ENCOUNTER 2025-05-09 07:18 | Outpatient (CLI) | payer BC ==
[~2025-05-09] VITALS: Ht 152.4 cm; Wt 47.2 kg
[~2025-05-09 07:18] MED LIST: ATOR20TA50 PO
[2025-05-09] MEDS: REGADENOSON 0.4 MG/5 ML SYRG IV ONE ×2 (08:54→11:49)
--- NOTE | 2025-05-09 13:50 | DVHSR ---
APPROVED REPORT Exam: Nuclear Stress Test Indication: chest pain BMI: 0 Medical History Medical History: pacemaker, bradycardia, insomnia, anxiety Stress Test Details Stress Test: Pharmacologic stress testing performed using 0.4 mg of regadenoson per 5 mL given IV ov er 10 seconds. HR Resting HR: 78 bpmMax Heart Rate (APMHR): 163.673152 bpm Max HR Achieved: 126 bpmTarget HR (85% APMHR): 138.551382 bpm % of APMHR: 77.30 Recovery HR: 84 bpm BP Resting BP: 125/77 mmHg Recovery BP: 139/65 mmHg ECG Resting ECG: Sinus Rhythm Clinical Reason for Termination: Completed protocol Stress ECG Conclusion lvef 75% normal perfusion scan NM EXAM: Myocardial Perfusion REST/STRESS Imaging Protocol: Rest Tc-99m/Stress Tc-99m 1 day Resting Data Rest SPECT myocardial perfusion imaging was performed in supine position 60 minutes following the int ravenous injection of 10.1 mCi of Tc-99m Sestamibi. Time of rest injection: 07:45 Date: 05/09/2025 Time of rest imagin:45 Date: 05/09/2025 Administration Route: IV Administration Site: Left Hand Pharmacologic Stress Pharmacologic stress test was performed by injecting Regadenoson 0.4 mg IV push followed by the intra venous injection of 30.1 mCi of Tc-99m Sestamibi. Time of stress injection: 08:54 Date: 05/09/2025 Time of stress imagin:54 Date: 05/09/2025 Administration Route: IV Administration Site: Left Hand Gated Stress SPECT was performed 60 minutes after stress injection. The images were gated to evaluate regional wall motion and calculate left ventricular ejection fracti on. Stress only was performed in the Supine position. Nuclear Conclusion Nuclear Findings: negative for ischemia lvef 75% normal perfusion scan
== END 2025-05-09 17:00 | disposition home or self-care (01) ==
LOC: XY 07:18
PROVIDERS: ATTEND Internal Medicine
DX: I49.8 Other specified cardiac arrhythmias (principal); R07.9 Chest pain, unspecified; I44.1 Atrioventricular block, second degree; F41.9 Anxiety disorder, unspecified; F51.01 Primary insomnia; Z95.0 Presence of cardiac pacemaker
CPT/HCPCS: 78452; 93017; A9500; J2785